=== PATIENT | male | born 1935 ===

== ENCOUNTER 2025-06-22 08:14 | Emergency (ER) | payer OTHER, MEDICARE ==
[~2025-06-22] VITALS: Ht 170.2 cm; Wt 63.5 kg
--- NOTE | 2025-06-22 09:38 | RADIOLOGY REPORT ---
INDICATION: low back pain COMPARISON: None TECHNIQUE: 3 views of the lumbar spine were obtained. FINDINGS: Mild retrolisthesis of L2 on L3. Mild mild anterolisthesis of L4 on L5. 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 No acute fracture, vertebral compression deformity or aggressive osseous lesions. The paravertebral soft tissues are grossly unremarkable. IMPRESSION: No acute fracture.
[2025-06-22] MEDS: HYDROcodone/acetaminophen 5mg/325mg tablet PO ONE (10:30)
--- NOTE | 2025-06-22 11:15 | Physician Documentation ---
History of Present Illness ~ Chief Complaint: Back Pain Stated Complaint: BACK PAIN Time Seen by MD: 08:41 Primary Medical Doctor: DR LAU Mode of Arrival: POV HPI 89 year old male with lower midline back pain radiating into his left leg intermittently for several days after a ground level fall. He has been walking since that time as well as has control of his bowels and denies fever, paralysis. He has a history of a back injury and surgery decades ago. He has been walking with difficulty. Medication Reconciliation Allergies: Coded Allergies: No Known Allergies (Unverified , 06/22/25) Review of Systems All Other Systems at this time: Reviewed and Negative Physical Exam Physical Exam Vital Signs: RN Vital Signs have been reviewed: Yes, Temperature: 98.0, Source: Temporal, Heart Rate: 64, Respiratory Rate: 16, BP: 164/80, Pulse Oximetry: 95, Weight: 63.500 Oxygen Flow Rate: 0 Physical Exam HEENT: PERRL, moist oral mucosa, EOMI Pulmonary: No respiratory distress Abdomen: soft, nontender, no pulsatile masses noted MSK: no deformity Skin: w/d/i, no rash Neuro: alert, nonfocal 5/5 strength to BLE Psych: normal affect Progress Results/Orders Results/Orders Orders - SATISH WOODSON MD Lumbar Spine Limited (06/22/25 08:40) Hip,Bi,Cmplt(Ap Pelvis) (06/22/25 10:02) Completed Orders - SATISH WOODSON MD Lumbar Spine Limited (06/22/25 08:40) Hip,Bi,Cmplt(Ap Pelvis) (06/22/25 10:02) Hydrocodone/Apap 5/325mg Tab (Burns 5/32 (06/22/25 10:25) Medications Received in ER Medications (Trade) Dose Ordered Sig/Sofi Route PRN Reason Start Time Stop Time Status Last Admin Dose Admin (Burns 5/325mg tablet) 1 tab ONCE ONCE PO 06/22/25 10:25 06/22/25 10:26 DC 06/22/25 10:30 1 TAB Vital Signs 06/22/25 06/22/25 06/22/25 06/22/25 08:15 09:34 10:14 10:30 Temp 98.0 Pulse 68 60 Resp 16 15 12 14 B/P (MAP) 170/46 16/71 (53) Pulse Ox 98 98 O2 Flow Rate 0 06/22/25 10:58 Pulse 64 Resp 16 B/P (MAP) 164/80 (108) Pulse Ox 95 Medical Decision Making Findings 89 year old male with lumbar pain that is intermittent, sharp, radiating to L leg intermittently but no red flag elements. Xray to lumbar spine and pelvis did not suggest fractures. I do think this patient is suffering from a lumbar radiculopathy at this time given the description of symptoms. Counseled, reassured, pain medications, referral to PCP for outpatient MRI scheduling. Differential Diagnosis Ddx = lumbar radiculopathy, vertebral body fracture, cauda equina, spinal cord impingement Departure Disposition: HOME / SELF CARE / HOMELESS Impression: Primary Impression: Lumbar radicular pain Condition: Stable Discharge Instructions: Acute Back Pain, Adult Referrals: NO PRIMARY CARE PROVIDER (PCP) Prescriptions Hydrocodone Bit/Acetaminophen 5/325 MG (Burns 5/325 MG) 5 Mg/325 Mg Tablet 1-2 TAB PO Q4-6 hours PRN for pain, #16 TAB Prov: SATISH WOODSON MD 06/22/25 Education Educated: Patient, Family Educated regarding: diagnosis, treatment, prognosis, need for follow up Signature Scribe Signature: . Attestation: . SATISH WOODSON MD Jun 22, 2025 11:15
--- NOTE | 2025-06-22 11:16 | RADIOLOGY REPORT ---
CLINICAL INDICATION: L hip pain s/p fall TECHNIQUE: 2 radiographic views of the pelvis and 1 view of the bilateral hips were obtained. Comparison: None FINDINGS/IMPRESSION: There is no evidence of acute fracture or dislocation. The visualized joint space is well maintained. The alignment is anatomical. There is no radiopaque foreign body.
[2025-06-22] MEDS ORDERED: HYDR-3965 PO (11:26)
[2025-06-22 11:38] VITALS: BP 166/66; PULSE 66; RESP 16; TEMP 98; O2SAT 97
== END 2025-06-22 11:30 | disposition home or self-care (01) ==
LOC: ER 08:15
DX: M54.16 Radiculopathy, lumbar region (principal); W18.30XA Fall on same level, unspecified, initial encounter; Y93.89 Activity, other specified; Y92.89 Other specified places as the place of occurrence of the external cause; Y99.8 Other external cause status
CPT/HCPCS: 72100; 73521; 99284